=== PATIENT | male | born 1945 ===

== ENCOUNTER 2018-06-02 10:12 | Emergency (ER) | payer MEDICARE, MEDICAID ==
[2018-06-02 10:15] VITALS: BMI 24.9
[2018-06-02 10:17] VITALS: BP 129/63; PULSE 65; RESP 16; TEMP 97.6; O2SAT 99
--- NOTE | 2018-06-02 11:16 | ED PDOC ---
HPI: CCC, URI, Sore Throat Chief Complaint (Provider): Foreign body in ear History Per: Patient Additional Complaint(s): 73 yo male, denies any PMH, presents to ED after getting cotton swab from Q-tip stuck in left ear. No pain. Past Medical History Reviewed: Nursing Documentation, Vital Signs Vital Signs: Last Vital Signs Temp 97.6 F 06/02/18 10:16 Pulse 65 06/02/18 10:16 Resp 16 06/02/18 10:16 BP 129/63 06/02/18 10:16 Pulse Ox 99 06/02/18 10:16 - Medical History PMH: Anxiety, Depression, HTN, Hyperlipidemia, Seizures Denies: Chronic Kidney Disease - Surgical History Surgical History: Appendectomy - Family History Family History: States: No Known Family Hx - Living Arrangements Living Arrangements: With Family - Social History Current smoker - smoking cessation education provided: No Alcohol: Social Drugs: Denies - Allergies Allergies/Adverse Reactions: Allergies Allergy/AdvReac Type Severity Reaction Status Date / Time No Known Allergies Allergy Verified 06/02/18 11:11 Review of Systems ROS Statement: Except As Marked, All Systems Reviewed And Found Negative ENT: Positive for: Ear Pain Physical Exam - Reviewed Nursing Documentation Reviewed: Yes Vital Signs Reviewed: Yes - Physical Exam Appears: Positive for: Well, Non-toxic, No Acute Distress Head Exam: Positive for: ATRAUMATIC, NORMAL INSPECTION, NORMOCEPHALIC Skin: Positive for: Normal Color, Warm, DRY Eye Exam: Positive for: EOMI, Normal appearance, PERRL ENT: Positive for: TM Is/Are (Left TM not visible, (+) FB) Neck: Positive for: Normal, Painless ROM Cardiovascular/Chest: Positive for: Regular Rate, Rhythm Respiratory: Positive for: CNT, Normal Breath Sounds Gastrointestinal/Abdominal: Positive for: Normal Exam, Soft Back: Positive for: Normal Inspection Extremity: Positive for: Normal ROM Neurologic/Psych: Positive for: Alert, Oriented - ECG O2 Sat by Pulse Oximetry: 99 Medical Decision Making Medical Decision Making: FB removed by conventional underwriter using suction and alligator clamp. TM intact s/p removal Disposition - Clinical Impression Clinical Impression: Ear foreign body - Patient ED Disposition Is Patient to be Admitted: No - Disposition Disposition: Routine/Home Disposition Time: 11:00 Condition: STABLE Instructions: Removal of Foreign Body in Ear, Child Print Language: TAMAZIGHT
== END 2018-06-02 11:46 | disposition home or self-care (01) ==
LOC: H.ER 10:12
DX: T16.2XXA Foreign body in left ear, initial encounter (principal); E78.5 Hyperlipidemia, unspecified; I10 Essential (primary) hypertension